=== PATIENT | female | born 1950 | race Caucasian/White ===

== ENCOUNTER 2023-11-12 14:22 | Emergency (ER) | payer MEDICARE, OTHER, SELFPAY ==
[2023-11-12 14:27] VITALS: BP 146/84
[2023-11-12 14:36] VITALS: BMI 39.1
[2023-11-12 14:37] LABS: % Basophils 0.7 % (0-2); % Immature Granulocytes 0.4 % (0-0.5); % Lymphocytes 14.3 % (20.5-51.1); % Neutrophils 75.6 % (42.2-75.2); Absolute Basophils 0.1 10^3/uL (0-0.2); Absolute Eosinophils 0.2 10^3/uL (0-0.7); Absolute Lymphocytes 1.2 10^3/uL (1.2-3.4); Absolute Monocytes 0.5 10^3/uL (0.1-0.6); Absolute Neutrophils 6.1 10^3/uL (1.4-6.5); Hematocrit 39.8 % (37.0-47.0); Hemoglobin 14.2 g/dL (12.0-16.0); Mean Corp Hgb Conc. 35.7 g/dL (33.0-37.0); Mean Corpuscular Hgb 35.8 pg (27.0-31.0); Mean Corpuscular Volume 100.3 fL (81.0-99.0); Mean Platelet Volume 9.6 fL (7.4-10.4); Nucleated Red Blood Cells % 0 %; Platelet Count 211 10^3/uL (130-400); Red Blood Cell Count 3.97 10^6/uL (4.20-5.40); Red Cell Dist. Width 14.2 % (11.5-14.5); White Blood Cell Count 8.1 10^3/uL (4.8-10.8)
[2023-11-12 14:51] LABS: ALT (SGPT) 21 U/L (0-35); AST (SGOT) 29 U/L (14-36); Albumin 4.4 g/dl (3.5-5.0); Alkaline Phosphatase 100 U/L (38-126); Blood Urea Nitrogen 19 mg/dl (7-17); Calcium 9.1 mg/dl (8.4-10.2); Carbon Dioxide 25 mmol/L (22-30); Chloride 105 mmol/L (98-107); Estimated Creatinine Clearance 80 ml/min; Glucose 92 mg/dl (70-99); Potassium 3.9 mmol/L (3.5-5.1); Sodium 137 mmol/L (135-145); Total Bilirubin 0.7 mg/dl (0.2-1.3); eGFR > 60.00
[2023-11-12 15:00] VITALS: BP 104/68
[2023-11-12 15:02] LABS: Troponin I < 0.012 ng/ml
[2023-11-12 15:36] LABS: NT-proBNP 202 pg/ml
--- NOTE | 2023-11-12 15:40 | ED.GENMED ---
History of Present Illness
General
Chief Complaint: Breathing Problem
Source: patient
Exam Limitations: none
Time Seen by Provider: 11/12/23 14:48
Nursing documentation reviewed up to this point in time: agreed with
Travel History
Have you had any contact with someone who has COVID-19?: No
Do you have any symptoms of coronavirus? Fever > 100 degrees, chills, cough, shortness of breath, sore throat, loss of taste or smell, muscle aches, or headache?: No
History of Present Illness
History of Present Illness:
73-year-old female with past medical history as noted presents to the emergency department for evaluation of chest pain, shortness of breath and left leg pain. Patient reports initial onset of left leg aching pain really over the past few weeks.
Today she says that she noticed that there was a small lump in the left upper calf as well and she was concerned that given her pain and is now palpable lump that she could potentially have a blood clot. She was planning to come for assessment of
this send while she was driving she began to have rather abrupt onset of chest pain. She describes a burning sensation across to her chest. She says that the chest pains have been intermittent since then�typically last for a minute or 2 and to
return every 15 minutes or so. Onset was roughly 3 hours ago. She reports that she has associated shortness of breath. She says she has some mild nausea. No vomiting. No abdominal pain. She has had a mild cold over the past 2 to 3 weeks she
says--cough and congestion. No fevers or chills. She denies any personal history of cardiac disease but says that her mother from acute [place]. She denies any history of DVT/PE. She did have a recent long trip that she says she flew to and from
[place] about 3 weeks ago.
Review of Systems
Review of Systems
All Other Systems: ROS reviewed and negative except as documented in HPI and ROS
Constitutional: Denies fever or chills
EENT: Reports other (Congestion); Denies sore throat
Respiratory: Reports cough and trouble breathing
Cardiac: Reports chest pain; Denies diaphoresis or palpitations
ABD/GI: Reports nausea; Denies abdominal pain, vomiting or diarrhea
: Denies flank pain
Musculoskeletal: Reports muscle pain (Left calf pain); Denies edema, neck pain or back pain
Neurological: Denies dizzy, headache, weakness or numbness
Phy Exam
Physical Exam
Physical Exam:
General: Awake, alert, oriented x3; no acute distress
Head: Normocephalic, atraumatic
Eyes: Conjunctiva normal, EOMI
Throat: Airway intact, handling secretions
Neck: Trachea midline, supple without meningismus
Lungs: Clear to auscultation bilaterally, no wheezing, rales, rhonchi
Heart: Regular rate and rhythm, no murmurs, gallops, or rubs
Abd: Soft, non distended, nontender
Neuro: Cranial nerves grossly intact, speech fluid
Skin: no rash
Extremities: No edema in extremities, equal pulses in all extremities�with attention to her left calf she has no edema as above, she has small lump in the popliteal region which is minimally tender, no skin changes, good strong left DP and PT pulses
Scores
Heart Failure Risk
Heart Failure Risk Score: Not Applicable
Heart Score for Chest Pain Patients
STEMI patient?: No
History: Slightly or Non-Suspicious
ECG: Normal
Age: >/= 65 years
Risk Factors: No Risk Factors
Troponin: </= Normal Limit
Heart Score for Chest Pain Patients: 2
Heart Score Risk: 2.5% MACE over next 6 weeks
PE Wells Score
Symptoms of DVT: Yes
No alternative diagnosis better explains the illness: No
Tachycardia with pulse > 100: No
Immobilization (>=3 days) or surgery within previous 4 weeks: No
Prior history of DVT or pulmonary embolism: No
Presence of hemoptysis: No
Presence of malignancy: No
Pulmonary Embolism Risk Score: 0
Probability of PE: Pt is low risk
Withdrawal Assessment of Alcohol
Withdrawal Assessment Completed?: Not applicable
Course
Orders/Labs/Results
Orders:
Orders
11/12/23 14:24
Electrocardiogram (*1) Urgent
Reason for Study: Chest Pain
Cardiac Monitoring- Treatment ONCE
EKG- Treatment ONCE
IV Insert/Care/Rem.- Treatment PRN
O2 Therapy [RESP] Urgent
Titrate/Wean O2 to maintain O2 sat greater than (%): 90
Special Instructions: Maintain sats >/=90%
Pulse Ox/spot Check [RESP] Urgent
Quantity: 1
Special Instructions: ON ROOM AIR
11/12/23 14:26
Complete Blood Count/With Diff Urgent
Comprehensive Metabolic Panel Urgent
NT-proBNP Urgent
Comment: ADD ON
Troponin I Urgent
11/12/23 14:34
US Legs, Left [US Periph Venous LOWER Ext LT] Urgent
Comment:
Reason For Exam: PAIN AND LUMP
11/12/23 14:53
Add On- LAB Urgent
Tests Added?: BNP
11/12/23 15:38
CT Chest Pe Study Urgent
Comment:
Reason For Exam: LLE pain, chest pain, SOB
11/12/23 18:06
Vital Signs- Treatment ONCE
Frequency: Once
Comment: TEMPERATURE
11/12/23 18:25
Troponin I Urgent
11/12/23 19:15
Dexamethasone Sod Phosphate [Decadron] 20 mg .ROUTE .STK-MED ONE
Abnormal Lab Results
11/12/23
14:26
RBC 3.97 L 10^6/uL
(4.20-5.40)
MCV 100.3 H fL
(81.0-99.0)
MCH 35.8 H pg
(27.0-31.0)
Neutrophils % 75.6 H %
(42.2-75.2)
Lymphocytes % 14.3 L %
(20.5-51.1)
BUN 19 H mg/dl
(7-17)
11/12/23 14:26
11/12/23 14:26
Vital Signs
Initial and Last Documented VS:
Initial Vital Signs
Pulse Resp BP
86 15 146/84
11/12/23 14:27 11/12/23 14:27 11/12/23 14:27
Last Documented Vital Signs
Temp Pulse Resp BP Pulse Ox
36.8 C 75 21 136/75 99
11/12/23 18:18 11/12/23 18:15 11/12/23 18:15 11/12/23 18:00 11/12/23 18:15
MDM/Problems Addressed
Differential Diagnosis Includes:
Chest pain: Pulmonary embolism, ACS, GERD, anxiety, pneumonia, bronchitis
Leg pain: Calf strain, Ayala's cyst, DVT
MDM/Problems Addressed:
73-year-old female presents for evaluation of chest pain, shortness of breath, calf pain as described above. She had a recent flight to and from [place] 3 weeks ago. Vital signs here within normal limits. Physical exam as above. Plan to place an
IV check labs including CBC and CMP, coags. Check a troponin and a BNP. Check an EKG. Sent for an ultrasound of the left lower extremity rule out DVT. Given her concurrent chest pain we will also check CTA to rule out pulmonary embolism. Will
monitor closely reassess after the above.
Labs reviewed: CBC unremarkable, CMP shows no clinically significant abnormalities. Troponin negative times 1 repeat pending. BNP not elevated. CTA negative for PE. DVT study negative. Continue to monitor reassess after the above.
Repeat troponin negative. Patient has remained with reassuring vitals throughout her emergency room observation. She appears very well on clinical reassessment. At this point no clear emergent pathology, no clear indication for admission. I
think she is stable to be discharged and follow-up with her primary care physician. CTA did show questionable bronchitis or pneumonitis which might account for burning pain and dyspnea that she does admit to cough, 'cold' over the past week or so.
Can treat with some dexamethasone and albuterol. Leg pain could be from Ayala's cyst or muscular strain. Patient feels comfortable discharge at this point. We did speak about return precautions and all questions were answered.
*Radiology
Radiology exam reviewed: radiology read reviewed
*Pulse Oximetry
Patient hypoxic: no
*EKG
Interpreted by ED Provider?: Yes
Comparison EKG: no comparison EKG present
Heart Rate: 72
Rate: normal
Rhythm: sinus
[place]: normal axis
Interval: normal interval
QRS Pattern: normal QRS
Ischemia: no ischemia
*Critical Care Note
Total Time (30-74mins, 75-104mins- exclusive of procedures): Not Applicable
Data Reviewed
Review of Other/Old Records Reveals: Labs and Records
Source: patient and significant other
ED Attending Note
-
Portions of this chart may have been created with voice recognition software.� Occasional wrong word or��sound alike� substitutions may have occurred due to the inherent limitations of voice recognition software.
Discharge Plan
Departure
Patient Disposition: Home (Routine Discharge)
Date of Disposition: 11/12/23
Time of Disposition: 19:07
Patient with high blood pressure during this ER visit?: No
Discharge Problem:
Chest pain, Left leg pain
Instructions: Chest Pain (DC), Leg Muscle Strain ED
Prescriptions:
New
albuterol sulfate [ProAir HFA] 90 mcg/actuation HFA aerosol inhaler
1 puff inhalation Q4HPRN PRN (Reason: shortness of breath) Qty: 6.7 0RF
Referrals:
Nahum Rudd MD [Family Provider] - Call in 1-3 days for appt
Activity Restrictions/Additional Instructions:
Thank you for visiting the Emergency Department at [facility].
1. Please schedule a follow up appointment as directed. Call first thing tomorrow morning to make an appointment.
2. If indicated, please take your medications as instructed and indicated on discharge paperwork.
3. If any of your symptoms do not improve, or persist, or become more severe within 6-12 hours, please return to the emergency department for further care.
4. Please return to the emergency department if you develop a headache, neck pain/stiffness, fever greater than 100.4F, chest pain, shortness of breath, persistent nausea, vomiting, slurred speech, difficulty walking, numbness/tingling, weakness,
signs of infection or any other symptoms that are worrisome to you.
Please call [phone] if you have any questions.
Interventions
Interventions:
*Risk Screen - Suicide Last Done: 11/12/23 14:31
*General Assessment Last Done: 11/12/23 14:31
*Neglect/Abuse Screening Last Done: 11/12/23 14:31
ED- Fall Risk Assessment Last Done: 11/12/23 14:36
ED- Cardiac Assessment Last Done: 11/12/23 14:36
ED- Pulmonary Assessment Last Done: 11/12/23 15:12
[2023-11-12 16:17] VITALS: BP 133/81
[2023-11-12 17:22] VITALS: BP 141/69
[2023-11-12 18:00] VITALS: BP 136/75
[2023-11-12 18:58] LABS: Troponin I < 0.012 ng/ml
[2023-11-12] MEDS: DECADRON 10 MG IV (19:20)
--- NOTE | 2023-12-03 13:44 | OID.L.PAT ---
Pulmonary Nodule Pat Letter
- -
12/03/23
SLIME WILKES
[address]
[place], [place] [address]
Selin PALENCIA,
A pulmonary nodule was seen on an imaging study done by [facility]. This was reviewed by the [facility] Pulmonary Nodule Advisory Board and the following recommendation was made:
Recommendation: PET Scan - now and follow up with [facility] [employer]
If you have any questions, please do not hesitate to contact your primary care physician. If you are in need of a Physician, you can go to [email or web address] and click on 'Find a Provider'. Type 'Family Medicine' in the search.
Oncology Nurse Navigator
[facility]
[phone]
--- NOTE | 2023-12-03 13:45 | OID.L.REC ---
Pulmonary Nodule Follow Up
- Recommendation
12/03/23
Pulmonary Nodule Review Recommendations
Your patient, SLIME WILKES, had a pulmonary nodule seen on an imaging study done on 11/12/23 in the [facility] Emergency Room.
This was reviewed by the [facility] Pulmonary Nodule Advisory Board and the following recommendation was made:
Recommendation: PET Scan - now and follow up with [employer] [facility]
If you have any questions please do not hesitate to contact us.
Sincerely,
Oncology Nurse Navigator
[facility]
[phone]
== END 2023-11-12 19:31 | disposition home or self-care (01) ==
LOC: EMR 14:22
PROVIDERS: EMERGENCY PHYSICIAN Emergency Medicine; FAMILY PHYSICIAN Internal Medicine
DX: R07.9 Chest pain, unspecified (principal); R06.02 Shortness of breath; M79.662 Pain in left lower leg; Z82.49 Family history of ischemic heart disease and other diseases of the circulatory system
CPT/HCPCS: 99285; 96374; 71275; 80053; 83880; 84484; 85025; 93005; 93971; Q9967

== ENCOUNTER → 2023-12-18 10:09 | Outpatient (REF) | payer MEDICARE, OTHER, SELFPAY | LOC: HWWDC 10:09 | PROVIDERS: ATTENDING PHYSICIAN Internal Medicine | DX: Z12.31 Encounter for screening mammogram for malignant neoplasm of breast (principal) | CPT/HCPCS: 77063; 77067 ==

== ENCOUNTER → 2024-02-05 09:28 | Outpatient (REF) | payer MEDICARE, OTHER, SELFPAY | LOC: RAD 09:28 | PROVIDERS: ATTENDING PHYSICIAN Internal Medicine Critical Care Medicine; FAMILY PHYSICIAN Internal Medicine | DX: R91.1 Solitary pulmonary nodule (principal) | CPT/HCPCS: 71250 ==

== ENCOUNTER → 2024-02-07 08:43 | Outpatient (REF) | payer MEDICARE, OTHER, SELFPAY | LOC: HWRAD 08:43 | PROVIDERS: ATTENDING PHYSICIAN Obstetrics & Gynecology; FAMILY PHYSICIAN Internal Medicine | DX: N95.0 Postmenopausal bleeding (principal) | CPT/HCPCS: 76770; 76830; 76856 ==

== ENCOUNTER → 2024-02-21 09:40 | Outpatient (REF) | payer MEDICARE, OTHER, SELFPAY | LOC: HWRAD 09:40 | PROVIDERS: ATTENDING PHYSICIAN Obstetrics & Gynecology; FAMILY PHYSICIAN Internal Medicine | DX: R19.00 Intra-abdominal and pelvic swelling, mass and lump, unspecified site (principal) | CPT/HCPCS: 74178; Q9967 ==

== ENCOUNTER → 2024-03-07 09:42 | Outpatient (REF) | payer MEDICARE, OTHER, SELFPAY | LOC: HWRAD 09:42 | PROVIDERS: ATTENDING PHYSICIAN Internal Medicine Critical Care Medicine; FAMILY PHYSICIAN Internal Medicine | DX: R91.1 Solitary pulmonary nodule (principal) | CPT/HCPCS: 71250 ==

== ENCOUNTER → 2024-07-04 10:35 | Outpatient (REF) | payer MEDICARE, OTHER, SELFPAY | LOC: HWRAD 10:35 | PROVIDERS: ATTENDING PHYSICIAN Internal Medicine Critical Care Medicine; FAMILY PHYSICIAN Internal Medicine | DX: R91.1 Solitary pulmonary nodule (principal) | CPT/HCPCS: 71250 ==

== ENCOUNTER → 2024-12-19 09:39 | Outpatient (REF) | payer MEDICARE, OTHER, SELFPAY | LOC: HWWDC 09:39 | PROVIDERS: ATTENDING PHYSICIAN Obstetrics & Gynecology; FAMILY PHYSICIAN Internal Medicine | DX: Z78.0 Asymptomatic menopausal state (principal); Z12.31 Encounter for screening mammogram for malignant neoplasm of breast | CPT/HCPCS: 77063; 77067; 77080 ==

== ENCOUNTER → 2025-01-24 09:16 | Outpatient (REF) | payer MEDICARE, OTHER, SELFPAY | LOC: RAD 09:16 | PROVIDERS: ATTENDING PHYSICIAN Internal Medicine Rheumatology; FAMILY PHYSICIAN Internal Medicine | DX: M06.9 Rheumatoid arthritis, unspecified (principal) | CPT/HCPCS: 73030 ==

== ENCOUNTER → 2025-03-18 18:58 | Outpatient (REF) | payer MEDICARE, OTHER, SELFPAY | LOC: MRI 18:58 | PROVIDERS: ATTENDING PHYSICIAN Internal Medicine Rheumatology; FAMILY PHYSICIAN Internal Medicine | DX: M25.511 Pain in right shoulder (principal); M25.512 Pain in left shoulder | CPT/HCPCS: 73221 ==

== ENCOUNTER → 2025-05-12 11:36 | Outpatient (REF) | payer MEDICARE, OTHER, SELFPAY | LOC: HWCARD 11:36 | PROVIDERS: ATTENDING PHYSICIAN Pain Medicine Interventional Pain Medicine; FAMILY PHYSICIAN Internal Medicine | DX: Z01.818 Encounter for other preprocedural examination (principal) | CPT/HCPCS: 93005 ==

== ENCOUNTER → 2025-05-16 13:20 | Outpatient (REF) | payer MEDICARE, OTHER, SELFPAY | LOC: PAVMRI 13:20 | PROVIDERS: ATTENDING PHYSICIAN Pain Medicine Interventional Pain Medicine; FAMILY PHYSICIAN Internal Medicine | DX: M54.16 Radiculopathy, lumbar region (principal) | CPT/HCPCS: 72148 ==

== ENCOUNTER → 2025-06-27 10:36 | Outpatient (REF) | payer MEDICARE, OTHER, SELFPAY | LOC: RAD 10:36 | PROVIDERS: ATTENDING PHYSICIAN Internal Medicine Critical Care Medicine; FAMILY PHYSICIAN Internal Medicine | DX: R91.1 Solitary pulmonary nodule (principal) | CPT/HCPCS: 71250 ==